=== PATIENT | male | born 1960 | race Two or more races ===

== ENCOUNTER 2021-06-23 18:36 | Emergency (ER) | payer OTHER ==
[~2021-06-23] VITALS: Ht 160 cm; Wt 45.4 kg
[2021-06-24] MEDS ORDERED: MOBIC15 MG PO (08:03)
[2021-06-24] MEDS ORDERED: PROTONIX40 MG PO (08:03)
[2021-06-24] MEDS ORDERED: ZOFRAN8 MG PO (08:03)
== END 2021-06-24 08:43 ==
LOC: ER 18:36
DX: R63.4 Abnormal weight loss (principal); R11.11 Vomiting without nausea; E86.0 Dehydration

== ENCOUNTER 2021-07-02 17:59 | Emergency (ER) | payer OTHER ==
[~2021-07-02] VITALS: Ht 160 cm; Wt 56.7 kg
[~2021-07-02 17:59] MED LIST: MOBIC15 MG PO; PROTONIX40 MG PO; ZOFRAN8 MG PO
[2021-07-02] MEDS ORDERED: ZOFRAN8 MG PO (19:57)
== END 2021-07-02 20:29 | disposition home or self-care (01) ==
LOC: ER 17:59
DX: R07.89 Other chest pain (principal)

== ENCOUNTER 2021-07-14 15:22 | Emergency (ER) | payer OTHER ==
[~2021-07-14] VITALS: Ht 160 cm; Wt 52.2 kg
== END 2021-07-14 19:58 | disposition home or self-care (01) ==
LOC: ER 15:22
DX: M54.50 Low back pain, unspecified (principal); R10.84 Generalized abdominal pain; C79.82 Secondary malignant neoplasm of genital organs